=== PATIENT | female | born 1970 | race Caucasian/White ===

== ENCOUNTER 2022-11-08 09:04 | Day surgery (SDC) | payer BC ==
[2022-11-08] MEDS ORDERED: Ringers Lactate 1,000 ML IV ONE (09:42)
[2022-11-08] MEDS ORDERED: propofoL 200 MG/20 ML VIAL IV ONE ×2 (11:24→11:48)
[2022-11-08] MEDS ORDERED: LIDOCAINE 1% MPF 5 ML VIAL ONE (11:24)
[2022-11-08 13:09] VITALS: O2SAT 98
[2022-11-08 13:14] VITALS: BP 140/92; TEMP 98.9
--- NOTE | 2022-11-11 16:49 | EKG ---
Test Date: 2022-11-08 Test Time: 08:59:26 Sash Sticker: MANOLO MEASUREMENT RESULTS: Intervals: Rate: 63 DE: 156 QRSD: 76 QT: 422 QTc: 431 Farson: P: 22 DE: 156 QRS: -3 T: 80 INTERPRETIVE STATEMENTS: Normal sinus rhythm Nonspecific ST abnormality Abnormal ECG No previous ECG available for comparison Electronically Signed On 11-11-22 16:40:41 [employer] SPECIAL AGENT by Edmundo Burnette
== END 2022-11-08 12:55 | disposition home or self-care (01) ==
LOC: OR 09:04
PROVIDERS: ATTEND Surgery
PROC: 0DB48ZX Excision of Esophagogastric Junction, Via Natural or Artificial Opening Endoscopic, Diagnostic (ICD-10-PCS; 2022-11-08)
PROC: 0DBN8ZX Excision of Sigmoid Colon, Via Natural or Artificial Opening Endoscopic, Diagnostic (ICD-10-PCS; 2022-11-08)
PROC: 0DB98ZX Excision of Duodenum, Via Natural or Artificial Opening Endoscopic, Diagnostic (ICD-10-PCS; principal; 2022-11-08 11:00)
PROC: 0DB78ZX Excision of Stomach, Pylorus, Via Natural or Artificial Opening Endoscopic, Diagnostic (ICD-10-PCS; 2022-11-08 11:00)
DX: K21.9 Gastro-esophageal reflux disease without esophagitis (principal); K29.50 Unspecified chronic gastritis without bleeding; K22.9 Disease of esophagus, unspecified; R23.3 Spontaneous ecchymoses; Z12.11 Encounter for screening for malignant neoplasm of colon; K52.9 Noninfective gastroenteritis and colitis, unspecified; K64.4 Residual hemorrhoidal skin tags; K62.89 Other specified diseases of anus and rectum
CPT/HCPCS: 93005; 88312; 88305; 43239; 45380; J2704 ×2; J2001; J7120